=== PATIENT | male | born 1955 | race Caucasian/White ===

== ENCOUNTER 2017-05-17 08:46 | Day surgery (SDC) | payer OTHER ==
[~2017-05-17] VITALS: Ht 182.9 cm; Wt 84.0 kg
[2017-05-17] MEDS ORDERED: SODIUM CHLORIDE 0.9% 1,000 ML IV SCH (09:21)
[2017-05-17 09:24] VITALS: BP 138/96
[2017-05-17] MEDS ORDERED: AMLO5TAB2 PO (09:24)
[2017-05-17] MEDS ORDERED: LOSA25TA5 PO (09:24)
[2017-05-17] MEDS ORDERED: LIDOCAINE 2%, 20ML ONE (09:38)
[2017-05-17] MEDS ORDERED: FENTANYL PF 100 MCG/2ML ONE (10:01)
[2017-05-17] MEDS ORDERED: MIDAZOLAM 1 MG/ML, 5ML ONE ×2 (10:01)
[2017-05-17] MEDS ORDERED: NALOXONE 1 MG/ML, 2ML ONE (10:01)
[2017-05-17] MEDS ORDERED: FLUMAZENIL 0.1 MG/1 ML, 5ML ONE (10:01)
== END 2017-05-17 12:45 ==
LOC: OUT 08:46
PROVIDERS: ATTEND Specialist
DX: J84.10 Pulmonary fibrosis, unspecified (principal); J98.4 Other disorders of lung; I10 Essential (primary) hypertension
CPT/HCPCS: 32405; 71010; 77012; 88305; 99156; 99157; C2613; J2250; J3010; J3490; J2310

== ENCOUNTER 2017-06-08 06:18 | Day surgery (SDC) | payer OTHER ==
[~2017-06-08] VITALS: Ht 182.9 cm; Wt 82.8 kg
[~2017-06-08 06:18] MED LIST: AMLO5TAB2 PO; LOSA25TA5 PO
[2017-06-08 07:25] VITALS: BP 126/84
[2017-06-08] MEDS ORDERED: SODIUM CHLORIDE 0.9% 1,000 ML IV SCH (07:27)
[2017-06-08] MEDS ORDERED: FLUMAZENIL 0.1 MG/1 ML, 5ML ONE (08:24)
[2017-06-08] MEDS ORDERED: NALOXONE 1 MG/ML, 2ML ONE (08:24)
[2017-06-08] MEDS ORDERED: FENTANYL PF 100 MCG/2ML ONE ×2 (08:24)
[2017-06-08] MEDS ORDERED: MIDAZOLAM 1 MG/ML, 5ML ONE (08:24)
== END 2017-06-08 12:20 ==
LOC: OUT 06:18
PROVIDERS: ATTEND Specialist
DX: J16.8 Pneumonia due to other specified infectious organisms (principal); I10 Essential (primary) hypertension; J40 Bronchitis, not specified as acute or chronic
CPT/HCPCS: 32405; 71010; 77012; 87015; 87070; 87077; 87102; 87116; 87206; 88305; J2250; J3010; J7030; 87186; J2310